=== PATIENT | male | born 1955 | race Caucasian/White ===

== ENCOUNTER 2016-09-23 13:12 | Emergency (ER) | payer BC ==
[~2016-09-23] VITALS: Ht 175.3 cm; Wt 77.1 kg
[~2016-09-23 13:12] MED LIST: ADVAIR; ALBUTEROL INH
[2016-09-23] MEDS ORDERED: ALBUTEROL FS 2.5 MG/3 ML VIAL.NEB ONE ×2 (13:25→13:43)
[2016-09-23] MEDS ORDERED: IPRATROPIUM NEB FS 0.5 MG/2.5 ML AMPUL.NEB ONE (13:25)
[2016-09-23] MEDS ORDERED: IPRATROPIUM NEB FS 0.5 MG/2.5 ML AMPUL.NEB NEB ONE (13:30)
[2016-09-23] MEDS ORDERED: ALBUTEROL FS 2.5 MG/3 ML VIAL.NEB NEB ONE ×2 (13:30→14:00)
[2016-09-23 14:14] VITALS: BP 142/87
== END 2016-09-23 14:15 | disposition home or self-care (01) ==
LOC: ER 13:16
DX: J45.901 Unspecified asthma with (acute) exacerbation (principal)
CPT/HCPCS: 94640 ×2; 99284; A4606; Z7610

== ENCOUNTER 2018-12-21 21:30 | Emergency (ER) | payer BC ==
[~2018-12-21] VITALS: Ht 175.3 cm; Wt 78.5 kg
--- NOTE | 2018-12-21 21:40 | NUR ---
PT BIBSELF COMPLAINING OF INTERMITTENT PALPITATIONS X "FEW DAYS." PT DOES NOT HAVE PALPITAIONS AT THIS TIME. -SOB -PAIN -DIZZINESS PT AXO4. RESPIRATIONS EVEN AND UNLABORED. PT PUT ON THE PULPWOOD BUYER AND PULSE OX.
--- NOTE | 2018-12-21 21:50 | NUR ---
EKG AT BEDSIDE.
--- NOTE | 2018-12-21 21:55 | NUR ---
XRAY AT BEDSIDE.
[2018-12-21 22:04] LABS: BASOPHILS % (AUTO) 0.7 % (0.0-2.0); EOSINOPHILS % (AUTO) 4.5 % (0.0-6.0); HEMATOCRIT 42 % (39-51); HEMOGLOBIN 14.4 g/dL (13.5-17.5); LYMPHOCYTES # (AUTO) 1.3 /CMM (0.8-4.8); LYMPHOCYTES % (AUTO) 25.7 % (20.0-44.0); MEAN CORPUSCULAR HGB CONC 35 g/dl (31.0-36.0); MEAN CORPUSCULAR VOLUME 92 fL (80-96); MONOCYTES # (AUTO) 0.5 /CMM (0.1-1.30); MONOCYTES % (AUTO) 9.4 % (2.0-12.0); NEUTROPHILS % (AUTO) 59.7 % (43.0-81.0); PLATELET COUNT (AUTO) 245 /CMM (150-450); RED BLOOD CELL COUNT(AUTO) 4.56 MIL/uL (4.5-6.0); WHITE BLOOD COUNT (AUTO) 5.1 K/uL (4.3-11.0)
[2018-12-21 22:14] LABS: CALCIUM, SERUM 9.1 mg/dL (8.5-10.1); CARBON DIOXIDE 29 mmol/L (21-32); CHLORIDE 104 mmol/L (98-107); GLUCOSE 101 mg/dL (74-106); POTASSIUM 3.9 mmol/L (3.5-5.1); SODIUM SERUM 141 mmol/L (136-145); UREA NITROGEN, BLOOD 22 mg/dL (7-18)
--- NOTE | 2018-12-21 22:57 | NUR ---
CALLED ROBIN TO GET IMAGES READ.
[2018-12-21 23:29] VITALS: BP 142/78
== END 2018-12-21 23:29 | disposition home or self-care (01) ==
LOC: ER 21:33
DX: R00.2 Palpitations (principal); J45.909 Unspecified asthma, uncomplicated; Z60.2 Problems related to living alone
CPT/HCPCS: 36415; 71045-TC; 80048-TC; 84484-TC; 85025-TC